=== PATIENT | female | born 1985 | race African-American/Black ===

== ENCOUNTER 2021-06-17 01:21 | Emergency (ER) | payer SELFPAY ==
[~2021-06-17] VITALS: Ht 154.9 cm; Wt 73.0 kg
[2021-06-17] MEDS ORDERED: LIDOCAINE HCL/PF 1% 10 MG/ML 5ML VIAL INFIL ONE (02:00)
[2021-06-17] MEDS ORDERED: BACITRACIN ZINC OINT UDPKT TOP ONE (02:00)
[2021-06-17] MEDS ORDERED: ACETAMINOPHEN 325MG TABLET PO ONE (02:00)
[2021-06-17] MEDS ORDERED: TETANUS, DIPHTHERIA, PERTUSSIS VAC/PF 0.5ML (>10YR OLD) IM ONE (02:00)
[2021-06-17] MEDS ORDERED: BO1 TP (04:07)
[2021-06-17 04:20] VITALS: BP 115/71
== END 2021-06-17 04:20 | disposition home or self-care (01) ==
LOC: ER 01:21
DX: S61.411A Laceration without foreign body of right hand, initial encounter (principal); W26.8XXA Contact with other sharp object(s), not elsewhere classified, initial encounter; Y93.89 Activity, other specified; Y92.89 Other specified places as the place of occurrence of the external cause; Y99.8 Other external cause status; Z98.890 Other specified postprocedural states
CPT/HCPCS: 12001; 73130; 90471; 90715; 99283; J3490; Z7610